=== PATIENT | male | born 2005 | race Caucasian/White ===

== ENCOUNTER 2024-03-07 08:35 | Day surgery (SDC) | payer BC ==
[2024-03-06 11:12] VITALS: BMI 24.4
[2024-03-07] MEDS ORDERED: EPINEPHrine 1 MG/ML VIAL ONE (09:48)
[2024-03-07] MEDS ORDERED: Ferric Subsulfate 8 ML TOPICAL SOLN ONE (09:49)
[2024-03-07] MEDS ORDERED: Bacitracin Zinc Ointment 30 gm TUBE ONE (09:49)
[2024-03-07] MEDS ORDERED: Lidocaine 1% (PF) 30 ML VIAL ONE (09:49)
[2024-03-07] MEDS ORDERED: Oxymetazoline HCl 0.05% (30 ML BOT) ONE ×2 (09:49→11:51)
[2024-03-07] MEDS ORDERED: fentaNYL PF 100 MCG/2 ML SYRINGE ONE (09:51)
[2024-03-07] MEDS ORDERED: Midazolam HCl 2 mg/2 ml Vial ONE (09:51)
[2024-03-07] MEDS ORDERED: PROPOFOL 20 ML ONE (10:00)
[2024-03-07] MEDS ORDERED: Ondansetron PF 4 MG/2 ML Vial ONE (10:00)
[2024-03-07] MEDS ORDERED: Lidocaine 2% PF 5 ML VIAL ONE (10:00)
[2024-03-07] MEDS ORDERED: Dexamethasone 20 MG/5 ML VIAL ONE (10:00)
[2024-03-07] MEDS ORDERED: SUGAMMADEX SODIUM 200 MG/2 ML VIAL ONE (10:13)
[2024-03-07] MEDS ORDERED: Rocuronium Bromide 10 MG/ML (10ML VIAL) ONE (10:15)
[2024-03-07] MEDS ORDERED: ePHEDrine Sulfate 50 MG/10 ML VIAL ONE (10:24)
[2024-03-07] MEDS ORDERED: fentaNYL 50 mcg/mL 1 mL Vial ONE ×2 (11:24→11:40)
[2024-03-07] MEDS ORDERED: Hydrocodone-Acetamin 15 ML UDCUP ONE (12:19)
== END 2024-03-07 13:17 | disposition home or self-care (01) ==
LOC: SDC 08:35
PROVIDERS: ATTEND Specialist
PROC: 09TL8ZZ Resection of Nasal Turbinate, Via Natural or Artificial Opening Endoscopic (ICD-10-PCS; principal; 2024-03-07)
PROC: 09BM8ZZ Excision of Nasal Septum, Via Natural or Artificial Opening Endoscopic (ICD-10-PCS; principal; 2024-03-07)
PROC: 0CTPXZZ Resection of Tonsils, External Approach (ICD-10-PCS; principal; 2024-03-07)
DX: J34.3 Hypertrophy of nasal turbinates (principal); J34.2 Deviated nasal septum; G47.33 Obstructive sleep apnea (adult) (pediatric); A42.9 Actinomycosis, unspecified; J35.01 Chronic tonsillitis; Z79.899 Other long term (current) drug therapy
CPT/HCPCS: 88304; J0171; J1100; J2001; J2250; J2405; J2704; J3010